=== PATIENT | male | born 1945 | race Caucasian/White ===

== ENCOUNTER 2022-02-09 09:00 | Emergency (ER) | payer OTHER ==
[2022-02-09] MEDS ORDERED: NA CHLORIDE 0.9% 1,000 ML ONE (09:38)
[2022-02-09] MEDS ORDERED: FENTANYL CITR 100 MCG/2 ML ONE ×2 (09:38→14:29)
[2022-02-09] MEDS ORDERED: ONDANSETRON 4 MG/2 ML VIAL ONE (09:38)
[2022-02-09] MEDS ORDERED: TETANUS & DIPHTHERIA TOX,ADULT 0.5 ML VIAL ONE (09:38)
[2022-02-09 09:54] LABS: Hematocrit 45.9 % (39.6-49.0); Lymphocytes % 24.1 % (15.3-44.8); MPV 7.3 fL (7.6-11.3); RBC Red Blood Cell Count 5.16 M/uL (4.33-5.43)
[2022-02-09 09:55] LABS: Protime INR 0.97
[2022-02-09 10:09] LABS: Albumin 4.4 g/dL (3.4-5.0); Bilirubin Total 0.6 mg/dL (0.2-1.0); Potassium 3.9 mmol/L (3.5-5.1); Protein, Total 8.5 g/dL (6.4-8.2)
--- NOTE | 2022-02-09 11:12 | RAD REPORT ---
EXAM DESCRIPTION: RAD - Hand Left 3 View - 02/09/2022 11:04 am CLINICAL HISTORY: ANIMAL BITE COMPARISON: No comparisons FINDINGS: Soft tissue swelling is seen affecting the fourth finger. No fracture or radiopaque foreig n body is seen.
[2022-02-09 14:57] LABS: Absolute Lymphocytes (CBC) 0.6 K/uL (0.7-4.9); MPV 7.2 fL (7.6-11.3)
[2022-02-09 15:01] LABS: Protime INR 1.04
[2022-02-09 15:09] LABS: Albumin 3.8 g/dL (3.4-5.0); Bilirubin Total 0.3 mg/dL (0.2-1.0); Potassium 4.1 mmol/L (3.5-5.1)
[2022-02-09 15:10] LABS: Hematocrit 41.2 % (39.6-49.0); RBC Red Blood Cell Count 4.57 M/uL (4.33-5.43)
--- NOTE | 2022-02-09 16:27 | ER ---
Nurse's Notes [facility] Name: Ramiro Andrade Age: 76 yrs Sex: Male : 1945 Arrival Date: 02/09/2022 Time: 09:01 Bed 8 Private MD: Diagnosis: Toxic effect of snake venom-bitten by snake left hand Presentation: 02/09 09:07 Chief complaint: Patient states: he was working on his car, when he was bitten on his ap3 left ring finger by a copper head at approx 0830 this morning. Coronavirus screen: At this time, the client does not indicate any symptoms associated with coronavirus-19. Ebola Screen: No symptoms or risks identified at this time. Initial Sepsis Screen: Does the patient meet any 2 criteria? No. Patient's initial sepsis screen is negative. Does the patient have a suspected source of infection? No. Patient's initial sepsis screen is negative. Risk Assessment: Do you want to hurt yourself or someone else? Patient reports no desire to harm self or others. Onset of symptoms was February 09, 2022 at 08:30. 09:07 Method Of Arrival: Ambulatory ap3 09:07 Acuity: SULEMAN 2 ap3 Triage Assessment: 09:08 Bite description: bite sustained to dorsal aspect of middle phalanx of left ring finger ap3 is from animal, was sustained 30-60 minutes ago. by a snake, animal information: vaccination(s) is not applicable. General: Appears distressed, Behavior is calm. Pain: Complains of pain in dorsal aspect of middle phalanx of left ring finger Pain currently is 10 out of 10 on a pain scale. Pain began suddenly, 30 min ago. Neuro: Level of Consciousness is awake, alert, obeys commands, Oriented to person, place, time, situation. Cardiovascular: Patient's skin is warm and dry. Respiratory: Airway is patent Respiratory effort is even, unlabored. Historical: - Allergies: 09:10 No Known Allergies; ap3 - PMHx: 09:10 Chronic obstructive lung disease; Hypertensive disorder; ap3 - Immunization history:: Adult Immunizations unknown. - Social history:: Smoking status: unknown. Screenin:10 Abuse screen: Denies threats or abuse. Nutritional screening: No deficits noted. ap3 Tuberculosis screening: No symptoms or risk factors identified. 09:58 Fall Risk None identified. ph Assessment: 09:10 Reassessment: Spoke with poison control who states to elevate affected extremity as ss high as the shoulder and or head. Obtain urine specimen and if it is dark, to obtain CK and myoglobin levels. Obtain CBC, CMP and coags. Give opioids for pain control. Update Tetanus. Minimum of 6 hours observation if patient's symptoms do not progress. Poison control rep states that she will speak with retail loan originator regarding [employer] administration and call back KINA. 09:20 Reassessment: area of bruising/ swelling noted to L fourth finger marked at this time. ss Extremity elevated to level of head as recommended by poison control. 09:36 Reassessment: PER [facility] AT [facility]ISON CONTROL: FLUID TO KEEP SBP >90, CROFAB ONLY INDICATED bp FOR COAGULOPATHY OR POOR PERFUSION. CASE [id number]. 09:57 Reassessment: Patient appears in no apparent distress at this time. Patient and/or ph family updated on plan of care and expected duration. Pain level reassessed. Patient is alert, oriented x 3, equal unlabored respirations, skin warm/dry/pink. Pain: Complains of pain in dorsal aspect of middle phalanx of left ring finger. Neuro: Level of Consciousness is awake, alert, obeys commands, Oriented to person, place, time, situation, Reports dizziness. Cardiovascular: Capillary refill < 3 seconds in bilateral fingers Patient's skin is warm and dry. Respiratory: Airway is patent Respiratory effort is even, unlabored, Respiratory pattern is regular, symmetrical, Denies shortness of breath at rest. GI: Reports nausea. Derm: Skin is healthy with good turgor, Skin is pink, warm \T\ dry. Bruising that is dark purple, on dorsal aspect of middle phalanx of left ring finger. Musculoskeletal: Circulation, motion, and sensation intact. Range of motion: intact in all extremities, Swelling present in dorsal aspect of middle phalanx of left ring finger. 10:03 Reassessment: Contact info, Dom (son): [phone]. ph 11:45 Reassessment: Patient appears in no apparent distress at this time. Patient and/or ph family updated on plan of care and expected duration. Pain level reassessed. Patient is alert, oriented x 3, equal unlabored respirations, skin warm/dry/pink. Swelling noted to proximal knuckle of finger, slight bruising also noted but no redness, pt c/o pain to area, ERP notified see AMBER SOLOM[facility]. 14:09 Reassessment: Patient appears in no apparent distress at this time. Patient and/or ph family updated on plan of care and expected duration. Pain level reassessed. Patient is alert, oriented x 3, equal unlabored respirations, skin warm/dry/pink. Swelling noted to have progressed across knuckles, pt denies nausea at this time but reports that pain has increased. 15:14 Reassessment: Patient appears in no apparent distress at this time. Patient and/or ph family updated on plan of care and expected duration. Pain level reassessed. Patient is alert, oriented x 3, equal unlabored respirations, skin warm/dry/pink. 16:19 Reassessment: F/U WITH [facility] AT [place] [facility]ISON CONTR[facility]. NO FURTHER RECOMMENDATIONS AT bp THIS TIME, LABS AND VS REVIEWED. 17:03 Reassessment: PT D/C HOME AMBULATORY WITH FAMILY, DX WITH SNAKE BITE. bp Vital Signs: 09:07 Pulse 82; Resp 19; Pulse Ox 92% ; Weight 87.09 kg; Height 5 ft. 9 in. (175.26 cm); ap3 09:13 BP 90 / 58; ap3 09:55 BP 85 / 53; Pulse 77; Resp 18; Pulse Ox 91% on 2 lpm NC; ph 11:21 BP 88 / 67; Pulse 61; Resp 16; Pulse Ox 100% on 2 lpm NC; ph 11:52 BP 127 / 53; Pulse 64; Resp 18; Pulse Ox 91% on R/A; ph 12:37 BP 115 / 64; Pulse 66; Resp 18; Pulse Ox 95% on R/A; ph 13:30 BP 139 / 83; Pulse 65; Resp 13; Pulse Ox 96% ; bp 14:30 BP 141 / 75; Pulse 65; Resp 17; Pulse Ox 96% ; bp 15:30 BP 138 / 66; Pulse 63; Resp 12; Pulse Ox 95% ; bp 16:30 BP 138 / 63; Pulse 65; Resp 13; Pulse Ox 97% ; bp 09:07 Body Mass Index 28.35 (87.09 kg, 175.26 cm) ap3 ED Course: 09:01 Patient arrived in ED. rg4 09:02 [facility] pm1 09:02 Brendon Ivan MD is Attending Physician. pm1 09:08 Triage completed. ap3 09:09 Darren Harp, LUKAS is Primary Nurse. bp 09:10 Arm band placed on right wrist. ap3 09:10 Patient has correct armband on for positive identification. Bed in low position. Call ss light in reach. Side rails up X 1. Client placed on continuous cardiac and pulse oximetry monitoring. NIBP monitoring applied. 09:35 Inserted saline lock: 20 gauge in right forearm, using aseptic technique. ,using ss aseptic technique. Insertion by BERNICE sales technician. Patient maintains SpO2 saturation greater than 95% on room air. 09:39 Inserted saline lock: 22 gauge in right antecubital area, using aseptic technique. ss ,using aseptic technique. Insertion by BERNICE sales technician Blood collected. 11:06 Hand Left 3 View XRAY In Process Unspecified. EDMS 16:23 Agustin Griffin MD is Referral Physician. pm1 17:03 No provider procedures requiring assistance completed. IV discontinued, intact, bp bleeding controlled, No redness/swelling at site. Pressure dressing applied. 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 Exp: ph 11/07/2023. Lot #: [id number]. } Route: IM; Site: right deltoid; 11:52 Follow up: Response: No adverse reaction ph 11:51 Drug: fentaNYL (PF) 50 mcg Route: IVP; Site: right forearm; ph 12:10 Follow up: Response: No adverse reaction; Pain is decreased; RASS: Alert and Calm (0) ph 15:14 Drug: fentaNYL (PF) 50 mcg Route: IVP; Site: right forearm; ph 17:02 Follow up: Response: Pain is decreased bp 16:30 Drug: Unasyn (ampicillin-sulbactam) 1.5 grams Route: IVPB; Infused Over: 30 mins; Site: bp right forearm; 17:03 Follow up: IV Status: Completed infusion; IV Intake: 100ml bp Medication: 17:03 VIS not applicable for this client. bp Intake: 11:52 IV: 1000ml; Total: 1000ml. ph 17:03 IV: 100ml; Total: 1100ml. bp Outcome: 16:26 Discharge ordered by MD. pm1 17:03 Discharged to home ambulatory, with family. bp 17:03 Condition: stable 17:03 Discharge instructions given to patient, Instructed on discharge instructions, follow up and referral plans. medication usage, Demonstrated understanding of instructions, follow-up care, medications, Prescriptions given X 2. 17:08 Patient left the ED. bp Signatures: Dispatcher [employer] EDMS Maki Simon RN RN Ashley Mendoza RN RN Luis Jensen, RADHA FARM SERVICE CONSULTANT pm1 Leisa Flores rg4 Darren Harp RN RN bp Samantha Pina RN RN ap3 Corrections: (The following items were deleted from the chart) 09:06 09:06 Chief complaint: ss ss 09:10 09:10 PMHx: Hypothyroidism; ap3 ap3 09:37 09:36 Reassessment: [facility] AT [facility]: FLUID TO KEEP SBP >90, CROFAB ONLY bp INDICATED FOR COAGULOPATHY OR POOR PERFUSION bp
--- NOTE | 2022-02-09 16:27 | EDPHYS ---
Physician Documentation [facility] Name: Ramiro Andrade Age: 76 yrs Sex: Male : 1945 Arrival Date: 02/09/2022 Time: 09:01 Bed 8 Private MD: ED Physician Brendon Ivan HPI: 02/09 09:11 This 76 yrs old Male presents to ER via Ambulatory with complaints of Snake bite. pm1 09:11 The patient was bitten on the middle phalanx of left ring finger, by a snake, 2 foot pm1 long copperhead, outdoors. 09:11 Onset: The symptoms/episode began/occurred 1.5 hour(s) ago. Animal information: The pm1 snake had the markings of a copperhead snake. Secondary to the bite the patient reports multiple puncture wounds, two puncture wounds present to middle phalanx of left ring finger. Associated signs and symptoms: Pertinent positives: swelling at site, Pertinent negatives: motor deficit, numbness distal to wound. Severity of symptoms: in the emergency department the symptoms are unchanged. The patient has not experienced similar symptoms in the past. The patient has not recently seen a physician. Historical: - Allergies: 09:10 No Known Allergies; ap3 - PMHx: 09:10 Chronic obstructive lung disease; Hypertensive disorder; ap3 - Immunization history:: Adult Immunizations unknown. - Social history:: Smoking status: unknown. ROS: 09:11 Constitutional: Negative for fever, chills, and weight loss, Cardiovascular: Negative pm1 for chest pain, palpitations, and edema, Respiratory: Negative for shortness of breath, cough, wheezing, and pleuritic chest pain. 09:11 Back: Negative for injury and pain. 09:11 Neuro: Negative for headache, weakness, numbness, tingling, and seizure. 09:11 Abdomen/GI: Positive for nausea, Negative for abdominal pain, vomiting, diarrhea, constipation. 09:11 MS/extremity: Positive for pain, puncture, swelling, of the middle phalanx of left ring finger, Negative for decreased range of motion, deformity, paresthesias, tingling. 09:11 Skin: Positive for puncture, of the middle phalanx of left ring finger. 09:11 All other systems are negative. Exam: 09:11 Constitutional: This is a well developed, well nourished patient who is awake, alert, pm1 and in no acute distress. Head/Face: Normocephalic, atraumatic. 09:11 Eyes: Exam is negative for acute changes, Periorbital structures: appear normal, no acute changes, Pupils: no acute changes, Extraocular movements: no acute changes. 09:11 ENT: Exam is negative for acute changes, Mouth: is normal, no acute changes, Lips: normal, moist, Oral mucosa: normal, pink and intact, moist. 09:11 Cardiovascular: Exam negative for acute changes, Rate: normal, Rhythm: regular, Pulses: no pulse deficits are appreciated, Heart sounds: normal. 09:11 Respiratory: Exam negative for acute changes, respiratory distress, shortness of breath, Breath sounds: are clear throughout. 09:11 Abdomen/GI: Exam negative for acute changes, Inspection: abdomen appears normal, Palpation: abdomen is soft and non-tender, in all quadrants. 09:11 Musculoskeletal/extremity: Extremities: grossly normal except: noted in the palmar aspect of middle phalanx of left ring finger and dorsal aspect of middle phalanx of left ring finger: swelling, puncture wound present to dorsal aspect of left middle phalanx and palmar aspect of left middle phalanx. small amount of ecchymosis present to palmar aspect of left middle phalanx, capillary refill brisk on all fingers of left hand. the left hand Sensation intact. 09:11 Skin: Appearance: normal except for affected area, puncture wounds and bruising as noted on MS exam. 09:11 Neuro: Exam negative for acute changes, Orientation: is normal, Mentation: is normal, Motor: moves all fours, Gait: is steady, at a normal pace, without difficulty. Vital Signs: 09:07 Pulse 82; Resp 19; Pulse Ox 92% ; Weight 87.09 kg; Height 5 ft. 9 in. (175.26 cm); ap3 09:13 BP 90 / 58; ap3 09:55 BP 85 / 53; Pulse 77; Resp 18; Pulse Ox 91% on 2 lpm NC; ph 11:21 BP 88 / 67; Pulse 61; Resp 16; Pulse Ox 100% on 2 lpm NC; ph 11:52 BP 127 / 53; Pulse 64; Resp 18; Pulse Ox 91% on R/A; ph 12:37 BP 115 / 64; Pulse 66; Resp 18; Pulse Ox 95% on R/A; ph 13:30 BP 139 / 83; Pulse 65; Resp 13; Pulse Ox 96% ; bp 14:30 BP 141 / 75; Pulse 65; Resp 17; Pulse Ox 96% ; bp 15:30 BP 138 / 66; Pulse 63; Resp 12; Pulse Ox 95% ; bp 16:30 BP 138 / 63; Pulse 65; Resp 13; Pulse Ox 97% ; bp 09:07 Body Mass Index 28.35 (87.09 kg, 175.26 cm) ap3 MDM: 09:27 Patient medically screened. pm1 16:22 Data reviewed: vital signs. Data interpreted: Pulse oximetry: on room air is 95 %. pm1 Interpretation: normal. 16:22 Counseling: I had a detailed discussion with the patient and/or guardian regarding: the pm1 historical points, exam findings, and any diagnostic results supporting the discharge/admit diagnosis, lab results, radiology results, the need for outpatient follow up, a family practitioner, a hand specialist, to return to the emergency department if symptoms worsen or persist or if there are any questions or concerns that arise at home. 16:31 ED course: No further recommendations from poison control. Crofab not indicated by pm1 poison control guidelines. Will give patient antibiotic therapy and discussed follow up with hand surgery and return to ER for worsening of condition and any concerns. 02/09 09:10 Order name: CBC with Diff; Complete Time: 10:06 pm02/09 09:10 Order name: CMP; Complete Time: 10:14 pm02/09 09:10 Order name: PT-INR; Complete Time: 10: pm02/09 09:10 Order name: Ptt, Activated; Complete Time: 10: pm02/09 09:10 Order name: CPK; Complete Time: 10:14 pm02/09 09:10 Order name: Fibrinogen; Complete Time: 10:06 pm02/09 09:10 Order name: Hand Left 3 View XRAY; Complete Time: 11:15 pm02/09 09:25 Order name: COVID-19 SARS RT PCR (Document "Date of Onset" if Symptomatic); Complete ss Time: 10:52 02/09 13:59 Order name: CBC with Diff; Complete Time: 15:31 pm02/09 13:59 Order name: CMP; Complete Time: 15:31 pm1 02/09 13:59 Order name: PT-INR; Complete Time: 15:31 pm1 02/09 13:59 Order name: Ptt, Activated; Complete Time: 15:31 pm1 02/09 13:59 Order name: CPK; Complete Time: 15:31 pm1 02/09 13:59 Order name: Fibrinogen; Complete Time: 15:31 pm1 02/09 09:16 Order name: IV - Large Bore; Complete Time: 09:38 ss Administered Medications: 09:40 Drug: Zofran (Ondansetron) 4 mg Route: IVP; Site: right forearm; ph 10:00 Follow up: Response: No adverse reaction; Nausea is decreased ph 09:40 Drug: NS 0.9% 1000 ml Route: IV; Rate: 1000 ml; Site: right forearm; ph 11:52 Follow up: Response: No adverse reaction; IV Status: Completed infusion; IV Intake: ph 1000ml 09:42 Drug: fentaNYL (PF) 50 mcg Route: IVP; Site: right forearm; ph 10:00 Follow up: Response: No adverse reaction; Pain is decreased; RASS: Alert and Calm (0) ph 09:45 Drug: Tetanus-Diphtheria Toxoid Adult 0.5 ml {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 Exp: ph 11/07/2023. Lot #: [id number]. } Route: IM; Site: right deltoid; 11:52 Follow up: Response: No adverse reaction ph 11:51 Drug: fentaNYL (PF) 50 mcg Route: IVP; Site: right forearm; ph 12:10 Follow up: Response: No adverse reaction; Pain is decreased; RASS: Alert and Calm (0) ph 15:14 Drug: fentaNYL (PF) 50 mcg Route: IVP; Site: right forearm; ph 17:02 Follow up: Response: Pain is decreased bp 16:30 Drug: Unasyn (ampicillin-sulbactam) 1.5 grams Route: IVPB; Infused Over: 30 mins; Site: bp right forearm; 17:03 Follow up: IV Status: Completed infusion; IV Intake: 100ml bp Disposition: 18:58 Co-signature as Attending Physician, Brendon Ivan MD. rn Disposition Summary: 02/09/22 16:26 Discharge Ordered Location: Home pm1 Problem: new pm1 Symptoms: have improved pm1 Condition: Stable pm1 Diagnosis - Toxic effect of snake venom - bitten by snake left hand(02/09/22 16:28) pm1 Followup: pm1 - With: Emergency Department - When: As needed - Reason: Worsening of condition Followup: pm1 - With: Agustin Griffin MD - When: 2 - 3 days - Reason: Recheck today's complaints, Continuance of care, Re-evaluation by your physician Discharge Instructions: - Discharge Summary Sheet pm1 - Snake Bite pm1 Forms: - Medication Reconciliation Form pm1 - Thank You Letter pm1 - Antibiotic Education pm1 - Prescription Opioid Use pm1 Prescriptions: - Tylenol-Codeine #3 300 mg-30 mg Oral - take 2 tablet by ORAL route every 6 hours As needed; 20 tablet; Refills: 0, pm1 Product Selection Permitted - Cephalexin 500 mg Oral Capsule - take 1 capsule by ORAL route every 6 hours for 10 days; 40 capsule; Refills: 0, pm1 Product Selection Permitted Signatures: Dispatcher [employer] EDMS Brendon Ivna MD MD rn Smirch, Shelby, RN RN ss Ashley Mendoza RN RN ph Luis Jensen, RADHA RADIO REPAIRER pm1 Darren Harp RN Samantha Whitehead RN RN ap3 Corrections: (The following items were deleted from the chart) 09:10 09:10 PMHx: Hypothyroidism; ap3 ap3 16:28 16:26 Toxic effect of snake venom - bitten by snake right hand pm1 pm1 17:30 09:11 The patient was bitten on the dorsal aspect of middle phalanx of left ring pm1 finger, by a snake, 2 foot long copperhead, outdoors, pm1
[2022-02-09] MEDS ORDERED: AMPICILLIN/SULBACTAM 3GM/VIAL ONE (17:04)
[2022-02-09] MEDS ORDERED: NA CHLORIDE 0.9% 100 ML ONE ×2 (17:04→17:10)
[2022-02-09] MEDS ORDERED: AMPICILLIN/SULBACT 1.5GM VIAL ONE (17:10)
[2022-02-09 17:24] VITALS: BP 138/63; O2SAT 97
== END 2022-02-09 17:08 | disposition home or self-care (01) ==
LOC: ER 09:00
DX: T63.091A Toxic effect of venom of other snake, accidental (unintentional), initial encounter (principal); S61.432A Puncture wound without foreign body of left hand, initial encounter; Z23 Encounter for immunization; I10 Essential (primary) hypertension; Z20.822 Contact with and (suspected) exposure to COVID-19
CPT/HCPCS: 85025 ×2; 36415; 85384 ×2; 82550 ×2; 85610 ×2; 85730 ×2; 80053 ×2; 73130; 90714; U0003; J3010 ×2; J7030; J0295 ×2; J2405; 90471; 96361; 96365; 96375; 99284

== ENCOUNTER 2023-04-05 09:16 | Emergency (ER) | payer OTHER ==
--- OUTSIDE RECORDS SUMMARY | 2023-04-05 09:20 | XMS REPORT | Continuity of Care Document ---
:1945 Author Organization [facility] t Address [address] [place] [address] Care Team Providers Name Role [facility] Primary Care Physician Unavailable TAM CAREY Attending Clinician Unavailable TAM CAREY Attending Clinician Unavailable 1, [facility] Attending Clinician Unavailable Tam Carey MD Attending Clinician Doctor Unassigned, [place] Attending Clinician Unavailable Raju_P Attending Clinician Unavailable Raju_P Admitting Clinician Unavailable Payers Payer Name Policy Type Policy Number Effective Date Expiration Date [facility] [id number] 2011 00:00:00 Problems Condition Condition Condition Status Onset Resolution Last Treating Co mments Source Name Details Category Date Date Treatment Clinician Date No known No known Disease Unive rs active active ity of problems problems [facility] Allergies, Adverse Reactions, Alerts Allergy Allergy Status Severity Reaction(s) Onset Inactive Treating Comm ents Source Name Type Date Date Clinician NO KNOWN Drug Active Univers ALLERGIE Class ity of S [facility] Social History Social Habit Start Date Stop Date Quantity Comments Source History of Cigarette Smoker Universi ty of tobacco use [facility] Exposure to 2022-06-06 2022-06-16 Not sure University of SARS-CoV-2 00:00:00 13:37:00 [facility] (event) [place] Tobacco use and 2022-06-16 2022-06-16 Smokeless tobacco Un iversity of exposure 00:00:00 00:00:00 non-user [facility] Sex Ass[birth year] Universit y of 00:00:00 00:00:00 [facility] Smoking Status Start Date Stop Date Source Ex-smoker 2022-06-16 00:00:00 2022-06-16 00:00:00 [facility] Medications Ordered Filled Start Stop Current Ordering Indication Dosage Frequency Signature Comments Components Source Medication Medication Date Date Medication? Clinician (SIG) Name Name ketorolac 2021-08 Yes INSTILL 1 Uni vers 0.5 % 0-05 DROP IN ity of ophthalmic 00:00: LEFT EYE [place] as solution 00 FOUR TIMES Medic al A DAY FOR Branch INFLAMMATI ON FOR EYE KITS....DO NOT MAIL moxifloxaci 2021-08 Yes INSTILL 1 U nivers n 0.5 % 0-05 DROP IN ity of ophthalmic 00:00: LEFT EYE [place] as drops 00 FOUR TIMES Medical A DAY IN Branch THE OPERATIVE EYE *FOR EYE KIT...DO NOT MAIL prednisoLON 2021-08 Yes INSTILL 1 U nivers E acetate 1 0-05 DROP IN ity o f % 00:00: LEFT EYE [place] [facility] 00 FOUR TIMES Med ical suspension A DAY FOR Bran ch drops EYE INFLAMMATI ON FOR EYE KITS....DO NOT MAIL ketorolac 2021-08 Yes INSTILL 1 Uni vers 0.5 % 0-05 DROP IN ity of ophthalmic 00:00: LEFT EYE [place] as solution 00 FOUR TIMES Medic al A DAY FOR Branch INFLAMMATI ON FOR EYE KITS....DO NOT MAIL moxifloxaci 2021-08 Yes INSTILL 1 U nivers n 0.5 % 0-05 DROP IN ity of ophthalmic 00:00: LEFT EYE [place] as drops 00 FOUR TIMES Medical A DAY IN Branch THE OPERATIVE EYE *FOR EYE KIT...DO NOT MAIL prednisoLON 2021-08 Yes INSTILL 1 U nivers E acetate 1 0-05 DROP IN ity o f % 00:00: LEFT EYE [place] [facility] 00 FOUR TIMES Med ical suspension A DAY FOR Bran ch drops EYE INFLAMMATI ON FOR EYE KITS....DO NOT MAIL ketorolac 2021-08 Yes INSTILL 1 Uni vers 0.5 % 0-05 DROP IN ity of ophthalmic 00:00: LEFT EYE [place] as solution 00 FOUR TIMES Medic al A DAY FOR Branch INFLAMMATI ON FOR EYE KITS....DO NOT MAIL moxifloxaci 2021-08 Yes INSTILL 1 U nivers n 0.5 % 0-05 DROP IN ity of ophthalmic 00:00: LEFT EYE [place] as drops 00 FOUR TIMES Medical A DAY IN Branch THE OPERATIVE EYE *FOR EYE KIT...DO NOT MAIL prednisoLON 2021-08 Yes INSTILL 1 U nivers E acetate 1 0-05 DROP IN ity o f % 00:00: LEFT EYE [place] [facility] 00 FOUR TIMES Med ical suspension A DAY FOR Bran ch drops EYE INFLAMMATI ON FOR EYE KITS....DO NOT MAIL ketorolac 2021-08 Yes INSTILL 1 Uni vers 0.5 % 0-05 DROP IN ity of ophthalmic 00:00: LEFT EYE [place] as solution 00 FOUR TIMES Medic al A DAY FOR Branch INFLAMMATI ON FOR EYE KITS....DO NOT MAIL moxifloxaci 2021-08 Yes INSTILL 1 U nivers n 0.5 % 0-05 DROP IN ity of ophthalmic 00:00: LEFT EYE [place] as drops 00 FOUR TIMES Medical A DAY IN Branch THE OPERATIVE EYE *FOR EYE KIT...DO NOT MAIL prednisoLON 2021-08 Yes INSTILL 1 U nivers E acetate 1 0-05 DROP IN ity o f % 00:00: LEFT EYE [place] [facility] 00 FOUR TIMES Med ical suspension A DAY FOR Bran ch drops EYE INFLAMMATI ON FOR EYE KITS....DO NOT MAIL metoprolol Yes [facility]18 ity of mg tablet 00:00: [address] metoprolol Yes 25mg 25 mg. [facility] tart[facility] 50 7-18 ity of mg tablet 00:00: [place] [facility] Er metoprolol Yes 25mg 25 mg. [facility] tart[facility] 50 7-18 ity of mg tablet 00:00: [address] metoprolol Yes 25mg 25 mg. [facility] tart[facility] 50 7-18 ity of mg tablet 00:00: [address] albuterol Yes 2{puff} Inhale 2 U nivers 90 6-16 Puffs ity of mcg/actuati 00:00: every 6 [place] as on inhaler 00 (six) Medical hours as Branch needed. finasteride 2-0 Yes 5mg 5 mg. Unive rs 5 mg tablet 6-16 ity of 00:00: [place] [facility] Branch lisinopriL 2-0 Yes 20mg 20 mg. Unive rs 20 mg 6-16 ity of tablet 00:00: [address] Branch SERTraline 2-0 Yes 100mg 100 mg. Uni vers 100 mg 6-16 ity of tablet 00:00: [address] Branch simvastatin 2022-0 Yes 20mg 20 mg. Univ ers 20 mg 6-16 ity of tablet 00:00: [address] Branch tamsulosin 2-0 Yes .4mg 0.4 mg. Univ ers 0.4 mg 24 6-16 ity of hr capsule 00:00: [address] Branch albuterol 2-0 Yes 2{puff} Inhale 2 U nivers 90 6-16 Puffs ity of mcg/actuati 00:00: every 6 [place] as on inhaler 00 (six) Medical hours as Branch needed. finasteride 2-0 Yes 5mg 5 mg. Unive rs 5 mg tablet 6-16 ity of 00:00: [address] Branch lisinopriL 2-0 Yes 20mg 20 mg. Unive rs 20 mg 6-16 ity of tablet 00:00: [address] Branch SERTraline 2-0 Yes 100mg 100 mg. Uni vers 100 mg 6-16 ity of tablet 00:00: [address] Branch simvastatin 2022-0 Yes 20mg 20 mg. Univ ers 20 mg 6-16 ity of tablet 00:00: [address] Branch tamsulosin 2-0 Yes .4mg 0.4 mg. Univ ers 0.4 mg 24 6-16 ity of hr capsule 00:00: [address] Branch albuterol 2-0 Yes 2{puff} Inhale 2 U nivers 90 6-16 Puffs ity of mcg/actuati 00:00: every 6 [place] as on inhaler 00 (six) Medical hours as Branch needed. finasteride 2-0 Yes 5mg 5 mg. Unive rs 5 mg tablet 6-16 ity of 00:00: [address] Branch lisinopriL 2022-0 Yes 20mg 20 mg. Unive rs 20 mg 6-16 ity of tablet 00:00: [address] Branch SERTraline 0 Yes 100mg 100 mg. Uni vers 100 mg 6-16 ity of tablet 00:00: [address] simvastatin 2021-0 Yes 20mg 20 mg. Univ ers 20 mg 6-16 ity of tablet 00:00: [address] Branch tamsulosin 0 Yes .4mg 0.4 mg. Univ ers 0.4 mg 24 6-16 ity of hr capsule 00:00: [address] albuterol 0 Yes 2{puff} Inhale 2 U nivers 90 6-16 Puffs ity of mcg/actuati 00:00: every 6 [place] as on inhaler 00 (six) Medical hours as Branch needed. finasteride Yes 5mg 5 mg. Unive rs 5 mg tablet 6-16 ity of 00:00: [address] lisinopriL 0 Yes 20mg 20 mg. Unive rs 20 mg 6-16 ity of tablet 00:00: [address] SERTraline 0 Yes 100mg 100 mg. Uni vers 100 mg 6-16 ity of tablet 00:00: [address] simvastatin 0 Yes 20mg 20 mg. Univ ers 20 mg 6-16 ity of tablet 00:00: [address] tamsulosin 0 Yes .4mg 0.4 mg. Univ ers 0.4 mg 24 6-16 ity of hr capsule 00:00: [address] Immunizations Ordered Filled Immunization Date Status Comments [facility] e Immunization Name Name SARS-COV-2 COVID-2022-05-28 Completed Unive rsity of MIGUELINA-SUCROSE 00:00:00 [place] [facility] VACCINE 12 YRS+, Branch BIVALENT 0.3ML, IM, (PFIZER LEVY TOP BOOSTER) SARS-COV-2 COVID-19 2022-05-28 Completed Unive rsity of MIGUELINA-SUCROSE 00:00:00 [place] [facility] VACCINE 12 YRS+, Branch BIVALENT 0.3ML, IM, (PFIZER LEVY TOP BOOSTER) SARS-COV-2 COVID-19 2022-05-28 Completed Unive rsity of MIGUELINA-SUCROSE 00:00:00 [place] [facility] VACCINE 12 YRS+, Branch BIVALENT 0.3ML, IM, (PFIZER LEVY TOP BOOSTER) SARS-COV-2 COVID-19 2022-05-28 Completed Unive rsity of MIGUELINA-SUCROSE 00:00:00 [place] [facility] VACCINE 12 YRS+, Branch BIVALENT 0.3ML, IM, (PFIZER LEVY TOP BOOSTER) Influenza Virus 2021-10-06 Completed Universit y of Vaccine,quad 00:00:00 [place] [facility] Im,preserve Free Branch 65+ Influenza Virus 2021-10-06 Completed Universit y of Vaccine,quad 00:00:00 [place] [facility] Im,preserve Free Branch 65+ Influenza Virus 2021-10-06 Completed Universit y of Vaccine,quad 00:00:00 [place] [facility] Im,preserve Free Branch 65+ Influenza Virus 2021-10-06 Completed Universit y of Vaccine,quad 00:00:00 [place] [facility] Im,preserve Free Branch 65+ SARS-COV-2 COVID-19 2020-12-13 Completed Unive rsity of PFIZER VACCINE 00:00:00 [facility] SARS-COV-2 COVID-19 2020-12-13 Completed Unive rsity of PFIZER VACCINE 00:00:00 [facility] [place] [facility] SARS-COV-2 COVID-19 2020-12-13 Completed Unive rsity of PFIZER VACCINE 00:00:00 [facility] [place] [facility] SARS-COV-2 COVID-19 2020-12-13 Completed Unive rsity of PFIZER VACCINE 00:00:00 [facility] [place] [facility] SARS-COV-2 COVID-19 2020-11-19 Completed Unive rsity of PFIZER VACCINE 00:00:00 [facility] [place] [facility] SARS-COV-2 COVID-19 2020-11-19 Completed Unive rsity of PFIZER VACCINE 00:00:00 [facility] [place] [facility] SARS-COV-2 COVID-19 2020-11-19 Completed Unive rsity of PFIZER VACCINE 00:00:00 [facility] [place] [facility] SARS-COV-2 COVID-19 2020-11-19 Completed Unive rsity of PFIZER VACCINE 00:00:00 [facility] [place] [facility] Pneumococcal 13 2017-10-25 Completed Universit y of Conjugate, PCV13 00:00:00 [facility] (Prevnar 13) [place] Pneumococcal 13 2017-10-25 Completed Universit y of Conjugate, PCV13 00:00:00 [facility] dical (Prevnar 13) Branch Pneumococcal 13 2017-10-25 Completed Universit y of Conjugate, PCV13 00:00:00 [facility] dical (Prevnar 13) Branch Pneumococcal 13 2017-10-25 Completed Universit y of Conjugate, PCV13 00:00:00 [facility] dical (Prevnar 13) Branch TDAP 2017-03-11 Completed University of 00:00:00 [facility] 2017-03-11 Completed [facility] University of 00:00:00 [facility] Zoster(Zostavax)( 2012-12-06 Completed Unive rsity of ingles) 00:00:00 [facility] Zoster(Zostavax)( 2012-12-06 Completed Unive rsity of ingles) 00:00:00 [facility] Zoster(Zostavax)( 2012-12-06 Completed Unive rsity of ingles) 00:00:00 [facility] Zoster(Zostavax)( 2012-12-06 Completed Unive rsity of ingles) 00:00:00 [facility] Vital Signs Vital Name Observation Time Observation Value Comments Source Systolic blood 2022-06-16 18:51:00 131 mm[Hg] Univer sity of pressure [facility] Diastolic blood 2022-06-16 18:51:00 62 mm[Hg] Unive rsity of pressure [facility] Heart rate 2022-06-16 18:51:00 59 /min [facility] Respiratory rate 2022-06-16 18:51:00 19 /min [facility] height 2022-06-16 18:51:00 172.7 cm [facility] Body weight 2022-06-16 18:51:00 85.957 kg [facility] BMI 2022-06-16 18:51:00 28.81 kg/m2 [facility] Oxygen saturation in 2022-06-16 18:51:00 92 /min [facility] blood by [facility] Pulse oximetry Branch Procedures Procedure Date / Time Performed Performing Clinician [facility] e SLEEP STUDY DATA 2022-07-01 05:01:00 Doctor Unassigned, No Unive [facility] REPORT Name [facility] Er Encounters Start End Encounter Admission Attending Care Care Encounter Source Date/Time Date/Time Type Type Clinicians Facility Department ID 2022-08-20 2022-08-20 Outpatient R TAM CAREY [facility] [id number] Univers 20:00:00 20:00:00 TAM CAREY [facility] 2022-07-01 2022-07-02 Outpatient R TAM CAREY [facility] [id number] Univers 20:00:00 07:22:23 TAM CAREY [facility] 2022-07-01 2022-07-01 Manager Branch 1, [facility] Sleep Lab Bed [facility] [id number] Univers 20:00:00 22:30:00 Visit Tam Carey [id number] [place] of [id number] [id number] [facility] 193 Branch 2022-07-01 2022-07-01 Orders Doctor ELIZABETH [id number] Univers 00:00:00 00:00:00 Only Unassigned, LUKE [id number] ity of [place] [facility] [id number] [place] as [id number] [facility] 009 Branch 2022-06-16 2022-06-16 Office Aurelio [facility] [id number] Univers 13:40:00 14:00:00 Visit Tam KRAFT [id number] [id number] [facility] [id number] Ar dical [facility] 085 [facility] 2022-06-16 2022-06-16 Outpatient R TAM CAREY [facility] [id number] Univers 13:40:00 13:40:00 TAM CAREY [facility] 2019-12-03 2019-12-03 Outpatient Raju_P MMG [id number] [place] 04:44:00 04:44:00 0406 Medical [facility] Results This patient has no known results.
[2023-04-05 10:11] LABS: Absolute Lymphocytes (CBC) 1.5 K/uL (0.7-4.9); Hematocrit 39.3 % (39.6-49.0); Lymphocytes % 24.3 % (15.3-44.8); MPV 7.1 fL (7.6-11.3); Platelets 233 thou/uL (152-406); RBC Red Blood Cell Count 4.31 M/uL (4.33-5.43)
[2023-04-05 10:13] LABS: Protime INR 1.02
[2023-04-05 10:33] LABS: Albumin 3.8 g/dL (3.4-5.0); Bilirubin Direct 0.1 mg/dL (0-0.2); Bilirubin Indirect, Calculated 0.4 mg/dL (0.2-0.8); Bilirubin Total 0.5 mg/dL (0.2-1.0); Potassium 3.9 mEq/L (3.5-5.1); Protein, Total 7.6 g/dL (6.4-8.2); Troponin High Sensitivity 4.9 pg/mL (<58.9)
--- NOTE | 2023-04-05 11:10 | RAD REPORT ---
EXAM DESCRIPTION: RAD - Chest Single View - 04/05/2023 11:04 am CLINICAL HISTORY: CHEST PAIN Chest pain. COMPARISON: No comparisons FINDINGS: Portable technique limits examination quality. The lungs are grossly clear. The heart is normal in size. No displaced fractures. IMPRESSION: No acute intrathoracic process suspected.
--- NOTE | 2023-04-05 12:44 | ER ---
Nurse's Notes [facility] Name: Ramiro Andrade Age: 77 yrs Sex: Male : 1945 Arrival Date: 04/05/2023 Time: 09:16 Bed 14 Private MD: Diagnosis: Chest pain, unspecified;COPD/ Chronic obstructive pulmonary disease, unspecified Presentation: 04/05 09:22 Chief complaint: Patient states[facility]. Pt states he has had nj1 chest pains and shortness of breath over the past month. Denies pain at this time. 09:22 Coronavirus screen: Vaccine status: Patient reports receiving the 2nd dose of the covid nj1 vaccine. Ebola Screen: Patient denies travel to an Ebola-affected area in the 21 days before illness onset. Initial Sepsis Screen: Does the patient meet any 2 criteria? No. Patient's initial sepsis screen is negative. Does the patient have a suspected source of infection? No. Patient's initial sepsis screen is negative. Risk Assessment: Do you want to hurt yourself or someone else? Patient reports no desire to harm self or others. Onset of symptoms was February 2023. 09:22 Method Of Arrival: Ambulatory [facility] 09:22 Acuity: SULEMAN 3 nj1 Historical: - Allergies: 09:22 No Known Allergies; nj1 - PMHx: 09:22 Chronic obstructive lung disease; Hypertensive disorder; Hypercholesterolemia; PTSD; nj1 - PSHx: 09:22 None; nj1 - Immunization history:: Client reports receiving the 2nd dose of the Covid vaccine. - Social history:: Smoking status: Patient denies any tobacco usage or history of. Screenin:36 [facility] ED Fall Risk Assessment (Adult) History of falling in the last 3 months, kc6 including since admission No falls in past 3 months (0 pts) Confusion or Disorientation No (0 pts) Intoxicated or Sedated No (0 pts) Impaired Gait No (0 pts) Mobility Assist Device Used No (0 pt) Altered Elimination No (0 pt) Score/Fall Risk Level 0 - 2 = Low Risk. Abuse screen: Denies threats or abuse. Denies injuries from another. Nutritional screening: No deficits noted. Tuberculosis screening: No symptoms or risk factors identified. Assessment: 09:36 General: Appears in no apparent distress. comfortable, Behavior is calm, cooperative, kc6 appropriate for age. Pain: Denies pain. Quality of pain is described as heavy, pressure. Neuro: Level of Consciousness is awake, alert, obeys commands, Oriented to person, place, time, situation, Appropriate for age. Cardiovascular: Denies chest pain, Heart tones S1 S2 present Capillary refill < 3 seconds Rhythm is sinus bradycardia. Respiratory: Reports shortness of breath on exertion Airway is patent Trachea midline Respiratory effort is even, unlabored, Respiratory pattern is regular, symmetrical. GI: No signs and/or symptoms were reported involving the gastrointestinal system. : No signs and/or symptoms were reported regarding the genitourinary system. EENT: No signs and/or symptoms were reported regarding the EENT system. Derm: No signs and/or symptoms reported regarding the dermatologic system. Skin is intact, is healthy with good turgor, Skin is pink, warm \T\ dry. Musculoskeletal: No signs and/or symptoms reported regarding the musculoskeletal system. Circulation, motion, and sensation intact. Capillary refill < 3 seconds, Range of motion: intact in all extremities. 10:35 Reassessment: Patient appears in no apparent distress at this time. No changes from kc6 previously documented assessment. Patient and/or family updated on plan of care and expected duration. Pain level reassessed. Patient is alert, oriented x 3, equal unlabored respirations, skin warm/dry/pink. 11:41 Reassessment: Patient appears in no apparent distress at this time. No changes from kc6 previously documented assessment. Patient and/or family updated on plan of care and expected duration. Pain level reassessed. Patient is alert, oriented x 3, equal unlabored respirations, skin warm/dry/pink. Vital Signs: 09:22 BP 177 / 79; Pulse 62; Resp 18; Temp 98(O); Pulse Ox 97% on R/A; Weight 88 kg; Height 5 nj1 ft. 9 in. ; 10:35 BP 175 / 76; Pulse 56; Resp 20 S; Pulse Ox 95% on R/A; kc6 11:42 BP 165 / 68; Pulse 52; Resp 17 S; Pulse Ox 92% on R/A; kc6 09:22 Body Mass Index 28.65 (88.00 kg, 175.26 cm) [facility] ED Course: 09:18 Patient arrived in ED. rg4 09:20 Libia Cotton FNP-C [facility]. snw 09:20 Brendon Ivan MD is Attending Physician. snw 09:22 Arm band placed on right wrist. nj1 09:33 Triage completed. nj1 09:36 Harriet Hansen, RN is Primary Nurse. kc6 09:36 Inserted saline lock: 20 gauge in left antecubital area, using aseptic technique. kc6 ,using [facility]septic technique. [facility] collected. 09:37 Patient has correct armband on for positive identification. Placed in gown. Bed in low kc6 position. Call light in reach. Side rails up X2. Client placed on continuous cardiac and pulse oximetry monitoring. NIBP monitoring applied. nurse monitoring on. 10:02 Lipase Sent. kc6 10:02 Basic Metabolic Panel Sent. kc6 10:02 CBC with Diff Sent. kc6 10:02 LFT's Sent. kc6 10:02 Magnesium Sent. kc6 10:02 NT PRO-BNP Sent. kc6 10:02 PT-INR Sent. kc6 10:02 Troponin HS Sent. kc6 11:06 XRAY Chest (1 view) In Process Unspecified. EDMS 12:16 Troponin HS: Draw at 1215 Sent. kc6 12:27 EKG done, by ED staff. 8 12:43 Gurwinder Medina MD is Referral Physician. snw 13:13 No provider procedures requiring assistance completed. IV discontinued, intact, kc6 bleeding controlled, No redness/swelling at site. Pressure dressing applied. Administered Medications: 12:43 Drug: Famotidine PO 20 mg Route: PO; kc6 Medication: 13:14 VIS not applicable for this client. kc6 Outcome: 12:43 Discharge ordered by . snw 13:13 Discharged to home ambulatory. kc6 13:13 Condition: improved 13:13 Discharge instructions given to patient, Instructed on discharge instructions, follow up and referral plans. Demonstrated understanding of instructions, follow-up care. 13:14 Patient left the ED. kc6 Signatures: Dispatcher [employer] EDDC Libia Cotton FNP-C CLINICAL DATA MANAGER-Csnw Leisa Flores rg4 Harriet Hansen, RN RN kc6 Barby Burr RN RN nj1 Reena Zabala 8
--- NOTE | 2023-04-05 12:44 | EDPHYS ---
Physician Documentation [facility] Name: Ramiro Andrade Age: 77 yrs Sex: Male : 1945 Arrival Date: 04/05/2023 Time: 09:16 Bed 14 Private MD: ED Physician Brendon Ivan HPI: 04/05 09:28 This 77 yrs old Male presents to ER via Unassigned with complaints of Abnormal EKG. snw 09:28 Onset: The symptoms/episode began/occurred 1 month(s) ago, and became persistent. snw Modifying factors: The patient symptoms are alleviated by nothing, the patient symptoms are aggravated by nothing. It is unknown whether or not the patient has had similar symptoms in the past. The patient has been recently seen by a physician: the patient's primary care provider, earlier today, with similar presenting complaints. pt went for a check up at the [place] this am and told them about intermittent episodes of "tingly", intermittent chest pain.. Historical: - Allergies: 09:22 No Known Allergies; nj1 - PMHx: 09:22 Chronic obstructive lung disease; Hypertensive disorder; Hypercholesterolemia; PTSD; nj1 - PSHx: 09:22 None; nj1 - Immunization history:: Client reports receiving the 2nd dose of the Covid vaccine. - Social history:: Smoking status: Patient denies any tobacco usage or history of. ROS: 09:28 Constitutional: Negative for fever, chills, and weight loss, Eyes: Negative for injury, snw pain, redness, and discharge, ENT: Negative for injury, pain, and discharge, Neck: Negative for injury, pain, and swelling, Respiratory: Negative for shortness of breath, cough, wheezing, and pleuritic chest pain, Abdomen/GI: Negative for abdominal pain, nausea, vomiting, diarrhea, and constipation, Back: Negative for injury and pain, : Negative for injury, bleeding, discharge, and swelling, MS/Extremity: Negative for injury and deformity, Skin: Negative for injury, rash, and discoloration, Neuro: Negative for headache, weakness, numbness, tingling, and seizure, Psych: Negative for depression, anxiety, suicide ideation, homicidal ideation, and hallucinations. 09:28 Cardiovascular: Positive for chest pain, of the anterior aspect of left upper chest, tingly and intermittent. Exam: 09:27 Constitutional: This is a well developed, well nourished patient who is awake, alert, snw and in no acute distress. + cigarette Head/Face: Normocephalic, atraumatic. Eyes: Pupils equal round and reactive to light, extra-ocular motions intact. Lids and lashes normal. Conjunctiva and sclera are non-icteric and not injected. Cornea within normal limits. Periorbital areas with no swelling, redness, or edema. ENT: Nares patent. No nasal discharge, no septal abnormalities noted. Tympanic membranes are normal and external auditory canals are clear. Oropharynx with no redness, swelling, or masses, exudates, or evidence of obstruction, uvula midline. Mucous membranes moist. Neck: Trachea midline, no thyromegaly or masses palpated, and no cervical lymphadenopathy. Supple, full range of motion without nuchal rigidity, or vertebral point tenderness. No Meningismus. Chest/axilla: Normal chest wall appearance and motion. Nontender with no deformity. No lesions are appreciated. Cardiovascular: Regular rate and rhythm with a normal S1 and S2. No gallops, murmurs, or rubs. Normal PMI, no JVD. No pulse deficits. Respiratory: Lungs have equal breath sounds bilaterally, clear to auscultation and percussion. No rales, rhonchi or wheezes noted. No increased work of breathing, no retractions or nasal flaring. Abdomen/GI: Soft, non-tender, with normal bowel sounds. No distension or tympany. No guarding or rebound. No evidence of tenderness throughout. Back: No spinal tenderness. No costovertebral tenderness. Full range of motion. Skin: Warm, dry with normal turgor. Normal color with no rashes, no lesions, and no evidence of cellulitis. MS/ Extremity: Pulses equal, no cyanosis. Neurovascular intact. Full, normal range of motion. Neuro: Awake and alert, GCS 15, oriented to person, place, time, and situation. Cranial nerves II-XII grossly intact. Motor strength 5/5 in all extremities. Sensory grossly intact. Cerebellar exam normal. Normal gait. Psych: Awake, alert, with orientation to person, place and time. Behavior, mood, and affect are within normal limits. Vital Signs: 09:22 BP 177 / 79; Pulse 62; Resp 18; Temp 98(O); Pulse Ox 97% on R/A; Weight 88 kg; Height 5 nj1 ft. 9 in. ; 10:35 BP 175 / 76; Pulse 56; Resp 20 S; Pulse Ox 95% on R/A; kc6 11:42 BP 165 / 68; Pulse 52; Resp 17 S; Pulse Ox 92% on R/A; kc6 09:22 Body Mass Index 28.65 (88.00 kg, 175.26 cm) nj1 MDM: 09:22 Patient medically screened. snw 10:59 Differential diagnosis: viral Infection, bacterial infection, stable/unstable angina. snw Data reviewed: vital signs, nurses notes, lab test result(s), EKG, radiologic studies. 11:00 HEART Score: History: Slightly Suspicious (0), ECG: Normal (0), Age: > or = 65 years snw (2), Risk Factors: 1 or 2 risk factors (1), Troponin: Total Score = 3. LIZZIE Risk Score: 1 - patient's age is greater or equal to 65 years, 1 - Recent [<24hrs] Severe Angina, TOTAL SCORE = 2. Counseling: I had a detailed discussion with the patient and/or guardian regarding: the historical points, exam findings, and any diagnostic results supporting the discharge/admit diagnosis, the presence of at least one elevated blood pressure reading (>120/80) during this emergency department visit, lab results, radiology results, the need for outpatient follow up. Special discussion: Based on the patient's history, exam, and Dx evaluation, there is no indication for emergent intervention or inpatient Tx. It is understood by the patient/guardian that if the Sx's persist or worsen they need to return immediately for re-evaluation. Based on the history and exam findings, there is no indication for further emergent testing or inpatient evaluation. I discussed with the patient/guardian the need to see the outboard motors experimental mechanic for further evaluation of the symptoms. I discussed with the patient/guardian the need to see the primary care provider for further evaluation of the symptoms. 04/05 09:58 Order name: Basic Metabolic Panel; Complete Time: 10:33 snw 04/05 09:58 Order name: CBC with Diff; Complete Time: 10:22 snw 04/05 09:58 Order name: LFT's; Complete Time: 10:33 snw 04/05 09:58 Order name: Magnesium; Complete Time: 10:33 snw 04/05 09:58 Order name: NT PRO-BNP; Complete Time: 10:33 snw 04/05 09:58 Order name: PT-INR; Complete Time: 10:22 snw 04/05 09:58 Order name: Troponin HS; Complete Time: 10:33 snw 04/05 09:58 Order name: Lipase; Complete Time: 10:33 snw 04/05 11:14 Order name: Troponin HS: Draw at 1215; Complete Time: 12:43 snw 04/05 09:58 Order name: XRAY Chest (1 view); Complete Time: 11:13 snw 04/05 09:58 Order name: EKG; Complete Time: 09:59 snw 04/05 11:14 Order name: EKG: at 1215; Complete Time: 11:14 snw 04/05 09:58 Order name: Cardiac monitoring; Complete Time: 10:02 snw 04/05 09:58 Order name: EKG - Nurse/Tech; Complete Time: 10:02 snw 04/05 09:58 Order name: IV Saline Lock; Complete Time: 10:02 snw 04/05 09:58 Order name: Labs collected and sent; Complete Time: 10:02 snw 04/05 09:58 Order name: O2 Per Protocol; Complete Time: 10:02 w 04/05 09:58 Order name: O2 Sat Monitoring; Complete Time: 10:02 snw 08 11:14 Order name: EKG - Nurse/Tech; Complete Time: 12:16 snw EC:29 Rate is 57 beats/min. Rhythm is regular. QRS [place] is Normal. NM interval is normal. QRS snw interval is normal. T waves are Inverted in lead V2. No ST changes noted. Clinical impression: Sinus bradycardia and nonspecific changes. 12:38 Rate is 50 beats/min. Rhythm is regular. QRS [place] is Normal. NM interval is normal. QRS snw interval is normal. QT interval is normal. No Q waves. Clinical impression: Sinus bradycardia. Administered Medications: 12:43 Drug: Famotidine PO 20 mg Route: PO; kc6 Disposition: 17:44 Co-signature as Attending Physician, Brendon Ivan MD I reviewed the patient's care rn provided by the Advanced Practice Provider and agree with the diagnosis and treatment plan. Disposition Summary: 04/05/23 12:43 Discharge Ordered Location: Home snw Condition: Stable snw Diagnosis - Chest pain, unspecified snw - COPD/ Chronic obstructive pulmonary disease, unspecified snw Followup: snw - With: Emergency Department - When: As needed - Reason: Worsening of condition Followup: snw - With: Private Physician - When: 2 - 3 days - Reason: Recheck today's complaints, Continuance of care, Re-evaluation by your physician Followup: snw - With: - When: 2 - 3 days - Reason: Recheck today's complaints, Continuance of care, Re-evaluation by your physician Discharge Instructions: - Discharge Summary Sheet snw - Nonspecific Chest Pain, Adult snw - Hypertension, Adult snw - How to Take Your Blood Pressure, Nukx-lw-[id number] snw - Aspirin and Your Heart snw - Form - Blood Pressure Record Sheet snw Forms: - Medication Reconciliation Form snw - Thank You Letter snw - Antibiotic Education snw - Prescription Opioid Use snw - Patient Portal Instructions snw Signatures: Dispatcher [employer] EDLibia Caldera, VICE PRESIDENT OF MANUFACTURING-C VICE PRESIDENT OF MANUFACTURING-Csnw Brendon Ivan MD MD rn Campbell, Kaitlyn RN RN kc6 Barby Burr RN RN nj1
[2023-04-05] MEDS ORDERED: FAMOTIDINE 20 MG TAB ONE (12:50)
[2023-04-05 13:30] VITALS: TEMP 98
[2023-04-05 13:33] VITALS: BP 165/68; O2SAT 92
--- NOTE | 2023-04-06 18:11 | EKG ---
Test Date: 2023-04-05 Test Time: 12:23:02 Lead Ios Developer: SORAIDA MEASUREMENT RESULTS: Intervals: Rate: 50 GA: 140 QRSD: 102 QT: 480 QTc: 437 [place]: P: 46 GA: 140 QRS: 62 T: 50 INTERPRETIVE STATEMENTS: Sinus bradycardia Otherwise normal ECG Compared to ECG 04/05/2023 09:29:03 No significant changes Electronically Signed On 04-06-23 18:09:54 CDT by Gurwinder Medina
--- NOTE | 2023-04-06 18:12 | EKG ---
Test Date: 2023-04-05 Test Time: 09:29:03 Gis Database Administrator: YAA MEASUREMENT RESULTS: Intervals: Rate: 57 LA: 142 QRSD: 96 QT: 432 QTc: 420 [place]: P: 68 LA: 142 QRS: 71 T: 44 INTERPRETIVE STATEMENTS: Sinus bradycardia Otherwise normal ECG No previous ECG available for comparison Electronically Signed On 04-06-23 18:10:41 CDT by Gurwinder Medina
== END 2023-04-05 13:14 | disposition home or self-care (01) ==
LOC: ER 09:16
DX: R07.89 Other chest pain (principal); J44.9 Chronic obstructive pulmonary disease, unspecified; I10 Essential (primary) hypertension
CPT/HCPCS: 36415; 71045; 80048; 80076; 83690; 83735; 83880; 84484; 85025; 85610; 93005; 99284

== ENCOUNTER → 2023-09-19 | Emergency (ER) | payer OTHER ==
[~2023-09-19] MED LIST: ALBUTEROL 2.5 MG/3 ML NEB SOL ONE; IPRATROPIUM BROM 0.5MG/2.5ML ONE; METHYLPREDNISOLONE 125 MG INJ ONE
--- OUTSIDE RECORDS SUMMARY | 2023-09-19 12:48 | XMS REPORT | Continuity of Care Document ---
Author Name Unknown Address [address] [place] [address] [facility] thconnect Address [address] [place] [address] Care Team Providers Care Personal Computer Specialist Name Role Phone [facility] Primary Car e Physician Unavailable TAM CAREY Attending Clinician TAM Lu Attending Clinician Mary guerra 1, [facility] Sleep Lab Bed Attending Clinician Unavail Tam Silveira MD Attending Clinician Doctor Unassigned, [place] Attending Clinician U navailable Raju_P Attending Clinician Unavailable Raju_P Admitting Clinician Unavailable Payers Payer Name Policy Type Policy Number Effective Date Expirati on Date Source [facility] [id number] 2011 00:00:00 Problems Condition Name Condition Details Condition Category Status Onset Date Resolution Date Last Treatment Date Treating Clinician Comments Source No known active problems No known active problems Disease [facility] Allergies, Adverse Reactions, Alerts Allergy Name Allergy Type Status Severity Reaction(s) Onset Date Inactive Date Treating Clinician Comments Source NO KNOWN ALLERGIE S Drug Class Active [facility] Social History Social Habit Start Date Stop Date Quantity Comments Source History of tobacco use Cigarette Smoker [facility] Exposure to SARS-CoV-2 (event) 2022-06-06 00:00:00 2022-06-16 13:37:00 Not sure [facility] Tobacco use and exposure 2022-06-16 00:00:00 2022-06-16 00:00:00 Smokeless tobacco non-user [facility] Sex Ass[birth year] At 1945 00:00:00 1945 00:00:00 [facility] Smoking Status Start Date Stop Date Source Ex-smoker 2022-06-16 00:00:00 2022-06-16 00:00:00 [facility] Medications Ordered Medication Name Filled Medication Name Start Date Stop Date Current Medication? Ordering Clinician Indication Dosage Frequency Signature (SIG) Comments Components Source ketorolac 0.5 % ophthalmic solution 2021-08 005 00:00: 00 Yes INSTILL 1 DROP IN LEFT EYE FOUR TIMES A DAY FOR INFLAMMATI ON FOR EYE KITS....DO NOT MAIL [facility] moxifloxaci n 0.5 % ophthalmic drops 2021-08 005 00:00: 00 Yes INSTILL 1 DROP IN LEFT EYE FOUR TIMES A DAY IN THE OPERATIVE EYE *FOR EYE KIT...DO NOT MAIL [facility] prednisoLON E acetate 1 % ophthalmic suspension drops 2021-08 005 00:00: 00 Yes INSTILL 1 DROP IN LEFT EYE FOUR TIMES A DAY FOR EYE INFLAMMATI ON FOR EYE KITS....DO NOT MAIL [facility] ketorolac 0.5 % ophthalmic solution 2021-08 005 00:00: 00 Yes INSTILL 1 DROP IN LEFT EYE FOUR TIMES A DAY FOR INFLAMMATI ON FOR EYE KITS....DO NOT MAIL [facility] moxifloxaci n 0.5 % ophthalmic drops 2021-08 005 00:00: 00 Yes INSTILL 1 DROP IN LEFT EYE FOUR TIMES A DAY IN THE OPERATIVE EYE *FOR EYE KIT...DO NOT MAIL [facility] prednisoLON E acetate 1 % ophthalmic suspension drops 2021-08 0-05 00:00: 00 Yes INSTILL 1 DROP IN LEFT EYE FOUR TIMES A DAY FOR EYE INFLAMMATI ON FOR EYE KITS....DO NOT MAIL [facility] ketorolac 0.5 % ophthalmic solution 2021-08 0-05 00:00: 00 Yes INSTILL 1 DROP IN LEFT EYE FOUR TIMES A DAY FOR INFLAMMATI ON FOR EYE KITS....DO NOT MAIL [facility] moxifloxaci n 0.5 % ophthalmic drops 2021-08 0 00:00: 00 Yes INSTILL 1 DROP IN LEFT EYE FOUR TIMES A DAY IN THE OPERATIVE EYE *FOR EYE KIT...DO NOT MAIL [facility] prednisoLON E acetate 1 % ophthalmic suspension drops 2021-08 0 00:00: 00 Yes INSTILL 1 DROP IN LEFT EYE FOUR TIMES A DAY FOR EYE INFLAMMATI ON FOR EYE KITS....DO NOT MAIL [facility] ketorolac 0.5 % ophthalmic solution 2021-08 00:00: 00 Yes INSTILL 1 DROP IN LEFT EYE FOUR TIMES A DAY FOR INFLAMMATI ON FOR EYE KITS....DO NOT MAIL [facility] moxifloxaci n 0.5 % ophthalmic drops 2021-08 00:00: 00 Yes INSTILL 1 DROP IN LEFT EYE FOUR TIMES A DAY IN THE OPERATIVE EYE *FOR EYE KIT...DO NOT MAIL [facility] prednisoLON E acetate 1 % ophthalmic suspension drops 2021-08 00:00: 00 Yes INSTILL 1 DROP IN LEFT EYE FOUR TIMES A DAY FOR EYE INFLAMMATI ON FOR EYE KITS....DO NOT MAIL [facility] metoprolol tartrate 50 mg tablet 03-15 00:00: 00 Yes 25mg 25 mg. [facility] metoprolol tartrate 50 mg tablet 03-15 00:00: 00 Yes 25mg 25 mg. [facility] metoprolol tartrate 50 mg tablet 03-15 00:00: 00 Yes 25mg 25 mg. [facility] metoprolol tartrate 50 mg tablet 03-15 00:00: 00 Yes 25mg 25 mg. [facility] albuterol 90 mcg/actuati on inhaler 02-11 00:00: 00 Yes 2{puff} Inhale 2 Puffs every 6 (six) hours as needed. [facility] finasteride 5 mg tablet 02-11 00:00: 00 Yes 5mg 5 mg. [facility] lisinopriL 20 mg tablet 0 16 00:00: 00 Yes 20mg 20 mg. [facility] SERTraline 100 mg tablet 0 16 00:00: 00 Yes 100mg 100 mg. [facility] simvastatin 20 mg tablet 0 16 00:00: 00 Yes 20mg 20 mg. [facility] tamsulosin 0.4 mg 24 hr capsule 0 16 00:00: 00 Yes .4mg 0.4 mg. [facility] albuterol 90 mcg/actuati on inhaler 0 16 00:00: 00 Yes 2{puff} Inhale 2 Puffs every 6 (six) hours as needed. [facility] finasteride 5 mg tablet 0 16 00:00: 00 Yes 5mg 5 mg. [facility] lisinopriL 20 mg tablet 0 02-11 00:00: 00 Yes 20mg 20 mg. [facility] SERTraline 100 mg tablet 0 16 00:00: 00 Yes 100mg 100 mg. [facility] simvastatin 20 mg tablet 0 02-11 00:00: 00 Yes 20mg 20 mg. [facility] tamsulosin 0.4 mg 24 hr capsule 02-11 00:00: 00 Yes .4mg 0.4 mg. [facility] albuterol 90 mcg/actuati on inhaler 16 00:00: 00 Yes 2{puff} Inhale 2 Puffs every 6 (six) hours as needed. [facility] finasteride 5 mg tablet 0 16 00:00: 00 Yes 5mg 5 mg. [facility] lisinopriL 20 mg tablet 0 16 00:00: 00 Yes 20mg 20 mg. [facility] SERTraline 100 mg tablet 2021-0 -16 00:00: 00 Yes 100mg 100 mg. [facility] simvastatin 20 mg tablet 0 6-16 00:00: 00 Yes 20mg 20 mg. [facility] tamsulosin 0.4 mg 24 hr capsule 02-11 00:00: 00 Yes .4mg 0.4 mg. [facility] albuterol 90 mcg/actuati on inhaler 02-11 00:00: 00 Yes 2{puff} Inhale 2 Puffs every 6 (six) hours as needed. [facility] finasteride 5 mg tablet 02-11 00:00: 00 Yes 5mg 5 mg. [facility] lisinopriL 20 mg tablet 02-11 00:00: 00 Yes 20mg 20 mg. [facility] SERTraline 100 mg tablet 02-11 00:00: 00 Yes 100mg 100 mg. [facility] simvastatin 20 mg tablet 02-11 00:00: 00 Yes 20mg 20 mg. [facility] tamsulosin 0.4 mg 24 hr capsule 02-11 00:00: 00 Yes .4mg 0.4 mg. [facility] Vital Signs Vital Name Observation Time Observation Value Comments [facility] Systolic blood pressure 2022-06-16 18:51:00 131 mm[Hg] [facility] Diastolic blood pressure 2022-06-16 18:51:00 62 mm[Hg] [facility] Heart rate 2022-06-16 18:51:00 59 /min [facility] Respiratory rate 2022-06-16 18:51:00 19 /min [facility] Body height 2022-06-16 18:51:00 172.7 cm [facility] Body weight 2022-06-16 18:51:00 85.957 kg [facility] BMI 2022-06-16 18:51:00 28.81 kg/m2 [facility] Oxygen saturation in Arterial blood by Pulse oximetry 2022-06-16 18:51:00 92 /min [facility] Procedures Procedure Date / Time Performed Performing Clinicia n Source SLEEP STUDY DATA REPORT 2022-07-01 05:01:00 Doctor Unassigned, [place] [facility] Encounters Start Date/Time End Date/Time Encounter Type Admission Type Attending [facility] Care Facility Care Department Encounter ID Source 2022-08-20 20:00:00 2022-08-20 20:00:00 Outpatient R TAM CAREY STRAHIL [facility] [id number] [facility] 2022-07-01 20:00:00 2022-07-02 07:22:23 Outpatient R TAM CAREY STRAINGina [facility] [id number] [facility] 2022-07-01 20:00:00 2022-07-01 22:30:00 Rn Progressive Care Visit 1, [facility] Sleep Lab Bed Tam Carey [facility] [id number] [facility] 2022-07-01 00:00:00 2022-07-01 00:00:00 Orders Only Doctor Unassigned, [place] [facility] [id number] [facility] 2022-06-16 13:40:00 2022-06-16 14:00:00 [facility] [id number] [facility] 2022-06-16 13:40:00 2022-06-16 13:40:00 Outpatient R TAM CAREY STRAINGina [facility] [id number] [facility] 2019-12-03 04:44:00 2019-12-03 04:44:00 Outpatient Raju_P [facility] [id number]
--- NOTE | 2023-09-19 14:07 | RAD REPORT ---
EXAM DESCRIPTION: RAD - Chest Pa And Lat (2 Views) - 09/19/2023 1:50 pm CLINICAL HISTORY: COUGH COMPARISON: Chest Single View dated 04/05/2023 TECHNIQUE: PA and lateral views of the chest were obtained. FINDINGS: The lungs are clear apart from stable minimal right basilar atelectasis. Heart size is nor mal and central vasculature is within normal limits. No pleural effusion or pneumothorax seen. No acu te bony finding noted. IMPRESSION: No acute cardiopulmonary process.
[2023-09-19 14:24] LABS: Absolute Lymphocytes (CBC) 1.3 K/uL (0.7-4.9); Hematocrit 38.9 % (39.6-49.0); Lymphocytes % 18.3 % (15.3-44.8); MPV 6.6 fL (7.6-11.3); Platelets 247 thou/uL (152-406); RBC Red Blood Cell Count 4.32 M/uL (4.33-5.43)
[2023-09-19 14:45] LABS: Albumin 3.9 g/dL (3.4-5.0); Bilirubin Direct 0.1 mg/dL (0-0.2); Bilirubin Indirect, Calculated 0.3 mg/dL (0.2-0.8); Bilirubin Total 0.4 mg/dL (0.2-1.0); Magnesium 2.3 mg/dL (1.6-2.4); Potassium 4.6 mEq/L (3.5-5.1); Troponin High Sensitivity 4.1 pg/mL (<58.9)
--- NOTE | 2023-09-19 15:30 | ER ---
Nurse's Notes [facility] Name: Ramiro Andrade Age: 77 yrs Sex: Male : 1945 Arrival Date: 09/19/2023 Time: 12:44 Bed 12 Private MD: Diagnosis: COPD/ Chronic obstructive pulmonary disease, unspecified Presentation: 09/19 12:51 Chief complaint: Patient states: he has been having chest pain and productive cough x1 kc6 week. [facility]. reports wheezing at night. Coronavirus screen: At this time, the client does not indicate any symptoms associated with coronavirus-19. Ebola Screen: No symptoms or risks identified at this time. Initial Sepsis Screen: Does the patient meet any 2 criteria? No. Patient's initial sepsis screen is negative. Does the patient have a suspected source of infection? No. Patient's initial sepsis screen is negative. Risk Assessment: Do you want to hurt yourself or someone else? Patient reports no desire to harm self or others. Onset of symptoms was September 19, 2023. 12:51 Method Of Arrival: Ambulatory [facility] 12:51 Acuity: SULEMAN 3 kc6 Historical: - Allergies: 12:52 No Known Allergies; kc6 - PMHx: 12:52 Chronic obstructive lung disease; Hypercholesterolemia; Hypertensive disorder; PTSD; kc6 - PSHx: 12:52 None; kc6 - Immunization history:: Client reports receiving the 2nd dose of the Covid vaccine, Flu vaccine status is unknown. - Social history:: Smoking status: Patient denies any tobacco usage or history of. - Family history:: not pertinent. Screenin:33 [facility] ED Fall Risk Assessment (Adult) History of falling in the last 3 months, kc6 including since admission No falls in past 3 months (0 pts) Confusion or Disorientation No (0 pts) Intoxicated or Sedated No (0 pts) Impaired Gait No (0 pts) Mobility Assist Device Used No (0 pt) Altered Elimination No (0 pt) Score/Fall Risk Level 0 - 2 = Low Risk. Abuse screen: Denies threats or abuse. Denies injuries from another. Nutritional screening: No deficits noted. Tuberculosis screening: No symptoms or risk factors identified. Assessment: 15:33 General: Appears in no apparent distress. comfortable, well groomed, well developed, kc6 Behavior is calm, cooperative, appropriate for age. Pain: Complains of pain in chest Pain does not radiate. Neuro: Level of Consciousness is awake, alert, obeys commands, Oriented to person, place, time, situation, Appropriate for age. Cardiovascular: Reports chest pain, Heart tones S1 S2 present Capillary refill < 3 seconds. Respiratory: Airway is patent Trachea midline Respiratory effort is even, unlabored, Respiratory pattern is regular, symmetrical. GI: No signs and/or symptoms were reported involving the gastrointestinal system. : No signs and/or symptoms were reported regarding the genitourinary system. EENT: No signs and/or symptoms were reported regarding the EENT system. Derm: No signs and/or symptoms reported regarding the dermatologic system. Skin is intact, is healthy with good turgor, Skin is pink, warm \T\ dry. Musculoskeletal: No signs and/or symptoms reported regarding the musculoskeletal system. Circulation, motion, and sensation intact. Capillary refill < 3 seconds, Range of motion: intact in all extremities. Vital Signs: 12:51 BP 153 / 57; Pulse 62; Resp 18 S; Temp 97(TE); Pulse Ox 95% on R/A; Weight 90.72 kg kc6 (R); Height 5 ft. 9 in. (R); Pain 0/10; 15:48 BP 150 / 60; Pulse 75; Resp 18 S; Pulse Ox 96% on R/A; kc6 12:51 Body Mass Index 29.53 (90.72 kg, 175.26 cm) kc6 12:51 Pain Scale: Adult kc6 ED Course: 12:45 Patient arrived in ED. rg4 12:46 Rolf Gregory MD is Attending Physician. rt 12:52 Triage completed. kc6 12:52 Arm band placed on. kc6 13:47 Chest Pa And Lat (2 Views) XRAY In Process Unspecified. EDMS 14:20 Inserted saline lock: 20 gauge in left antecubital area, using aseptic technique. Blood iw collected. 15:20 Akua Cesar, LUKAS is Primary Nurse. jl7 15:32 Patient maintains SpO2 saturation greater than 95% on room air. kc6 15:33 Patient has correct armband on for positive identification. Bed in low position. Call kc light in reach. Side rails up X 1. Client placed on continuous cardiac and pulse oximetry monitoring. NIBP monitoring applied. potline monitor on. 15:48 No provider procedures requiring assistance completed. IV discontinued, intact, kc6 bleeding controlled, No redness/swelling at site. Pressure dressing applied. Administered Medications: 15:30 Drug: DuoNeb Nebulize (3:1) (2.5 mg - 0.5 mg) 3 ml Nebulizer once Route: Nebulizer; kc6 15:30 Drug: MethylPrednisoLONE IVP 125 mg IVP once Route: IVP; Site: left antecubital; kc6 Medication: 15:48 VIS not applicable for this client. kc6 Outcome: 15:29 Discharge ordered by MD. rt 15:48 Discharged to home ambulatory, kc6 15:48 Condition: improved 15:48 Discharge instructions given to patient, Instructed on discharge instructions, follow up and referral plans. medication usage, Demonstrated understanding of instructions, follow-up care, medications, Prescriptions given X 2, 15:48 Patient left the ED. kc6 Signatures: Dispatcher [employer] EDMS Rubi Lee, RN Leisa Newell rg4 Akua Cesar RN RN jl7 Harriet Hansen RN RN kc6 Rolf Gregory MD MD rt
--- NOTE | 2023-09-19 15:30 | EDPHYS ---
Physician Documentation [facility] Name: Ramiro Andrade Age: 77 yrs Sex: Male : 1945 Arrival Date: 09/19/2023 Time: 12:44 Bed 12 Private MD: ED Physician Rolf Gregory HPI: 09/19 18:29 This 77 yrs old Male presents to ER via Ambulatory with complaints of Chest Congestion, rt Chest Pain. 18:31 Patient presents to the ED with cough, congestion, shortness of breath for about 1 rt week. Reports pain with cough, denies any chest pain currently. Denies other acute complaint at this time, symptoms are moderate in severity, no other aggravating elevating factors.. Historical: - Allergies: 12:52 No Known Allergies; kc6 - PMHx: 12:52 Chronic obstructive lung disease; Hypercholesterolemia; Hypertensive disorder; PTSD; kc6 - PSHx: 12:52 None; kc6 - Immunization history:: Client reports receiving the 2nd dose of the Covid vaccine, Flu vaccine status is unknown. - Social history:: Smoking status: Patient denies any tobacco usage or history of. - Family history:: not pertinent. ROS: 18:31 Constitutional: Negative for fever, chills, and weight loss, Abdomen/GI: Negative for rt abdominal pain, nausea, vomiting, diarrhea, and constipation, MS/Extremity: Negative for injury and deformity, Skin: Negative for injury, rash, and discoloration, Neuro: Negative for headache, weakness, numbness, tingling, and seizure, Psych: Negative for depression, anxiety, suicide ideation, homicidal ideation, and hallucinations, 18:31 Cardiovascular: Positive for chest pain, Negative for edema, 18:31 Respiratory: Positive for cough, shortness of breath, Exam: 18:31 Constitutional: This is a well developed, well nourished patient who is awake, alert, rt and in no acute distress. Head/Face: Normocephalic, atraumatic. Chest/axilla: Normal chest wall appearance and motion. Nontender with no deformity. No lesions are appreciated. Cardiovascular: Regular rate and rhythm with a normal S1 and S2. No gallops, murmurs, or rubs. Normal PMI, no JVD. No pulse deficits. Abdomen/GI: Soft, non-tender, with normal bowel sounds. No distension or tympany. No guarding or rebound. No evidence of tenderness throughout. MS/ Extremity: Pulses equal, no cyanosis. Neurovascular intact. Full, normal range of motion. Neuro: Awake and alert, GCS 15, oriented to person, place, time, and situation. Cranial nerves II-XII grossly intact. Motor strength 5/5 in all extremities. Sensory grossly intact. Cerebellar exam normal. Normal gait. Psych: Awake, alert, with orientation to person, place and time. Behavior, mood, and affect are within normal limits. 18:31 ECG was reviewed by the Attending Physician. 18:31 Respiratory: Wheezes heard on all lung de souza, no respiratory distress, Vital Signs: 12:51 BP 153 / 57; Pulse 62; Resp 18 S; Temp 97(TE); Pulse Ox 95% on R/A; Weight 90.72 kg kc6 (R); Height 5 ft. 9 in. (R); Pain 0/10; 15:48 BP 150 / 60; Pulse 75; Resp 18 S; Pulse Ox 96% on R/A; kc6 12:51 Body Mass Index 29.53 (90.72 kg, 175.26 cm) kc6 12:51 Pain Scale: Adult kc6 MDM: 12:54 Patient medically screened. rt 18:31 Differential diagnosis: Pneumonia, pneumothorax, congestive heart failure, COPD rt exacerbation. HEART Score: History: Slightly Suspicious (0), ECG: Non specific repolarization disturbance / LBTB / PM (1), Age: > or = 65 years (2), Risk Factors: 1 or 2 risk factors (1), Troponin: < or = 1 x Normal Limit (0), Total Score = 3. Data reviewed: vital signs, nurses notes, lab test result(s), EKG, radiologic studies. Consideration of Admission/Observation Escalation of care including admission/observation considered. Symptoms significantly improving with treatment in the ED, no hypoxia, no pneumonia, negative troponin, given chronicity of symptoms, this is sufficient to rule out acute coronary syndrome, likely to benefit from admission at this time, stable for outpatient care, return precautions were discussed.. Independent interpretation of the following test(s) in the Emergency Department X-Ray: My interpretation is No pneumonia seen on interpretation of x-ray images. Test considered but Not performed: CT: Low suspicion for pulmonary embolism, CT angiogram not indicated. Care significantly affected by the following chronic conditions: Chronic Obstructive Pulmonary Disease. Counseling: I had a detailed discussion with the patient and/or guardian regarding the historical points, exam findings, and any diagnostic results supporting the discharge/admit diagnosis, lab results, radiology results, the need for outpatient follow up, to return to the emergency department if symptoms worsen or persist or if there are any questions or concerns that arise at home. Response to treatment: the patient's symptoms have markedly improved after treatment. 09/19 12:58 Order name: Basic Metabolic Panel; Complete Time: 15:18 rt 09/19 12:58 Order name: CBC with Diff; Complete Time: 15:18 rt 09/19 12:58 Order name: LFT's; Complete Time: 15:18 rt 09/19 12:58 Order name: Magnesium; Complete Time: 15:18 rt 09/19 12:58 Order name: NT PRO-BNP; Complete Time: 15:18 rt 09/19 12:58 Order name: Troponin HS; Complete Time: 15:18 rt 09/19 12:58 Order name: Chest Pa And Lat (2 Views) XRAY; Complete Time: 14:10 rt 09/19 12:58 Order name: EKG; Complete Time: 12:59 rt 09/19 12:58 Order name: Cardiac monitoring; Complete Time: 15:21 rt 09/19 12:58 Order name: EKG - Nurse/Tech; Complete Time: 15:12 rt 09/19 12:58 Order name: IV Saline Lock; Complete Time: 14:20 rt 09/19 12:58 Order name: Labs collected and sent; Complete Time: 14:20 rt 09/19 12:58 Order name: O2 Per Protocol; Complete Time: 14:16 rt 09/19 12:58 Order name: O2 Sat Monitoring; Complete Time: 14:16 rt EC:31 Rate is 58 beats/min. Rhythm is regular, Sinus bradycardia with No ectopy. QRS [place] is rt Normal. [place] interval is normal. QRS interval is normal. QT interval is normal. No Q waves. T waves are Normal. No ST changes noted. Administered Medications: 15:30 Drug: DuoNeb Nebulize (3:1) (2.5 mg - 0.5 mg) 3 ml Nebulizer once Route: Nebulizer; kc6 15:30 Drug: MethylPrednisoLONE IVP 125 mg IVP once Route: IVP; Site: left antecubital; kc6 Disposition Summary: 09/19/23 15:29 Discharge Ordered Notes: Location: Home rt Problem: an acute exacerbation rt Symptoms: have improved rt Condition: Stable rt Diagnosis - COPD/ Chronic obstructive pulmonary disease, unspecified rt Followup: rt - With: Private Physician - When: 2 - 3 days - Reason: Discharge Instructions: - Discharge Summary Sheet rt - Chronic Obstructive Pulmonary Disease rt Forms: - Medication Reconciliation Form rt - Thank You Letter rt - Antibiotic Education rt - Prescription Opioid Use rt - Patient Portal Instructions rt - Leadership Thank You Letter rt Prescriptions: - albuterol sulfate 90 mcg/actuation Inhalation HFA Aerosol Inhaler - inhale 2 inhalation INHALATION route every 4 to 6 hours as needed for shortness rt of breath or wheezing; 2 Each; Refills: 0, Product Selection Permitted - Prednisone 20 mg Oral Tablet - take 2 tablets ORAL route once daily for 5 days; 10 tablet; Refills: 0, Product rt Selection Permitted Signatures: Dispatcher [employer] Harriet Schneider RN RN kc6 Rolf Gregory MD MD rt
[2023-09-19 17:02] VITALS: TEMP 97
[2023-09-19 17:24] VITALS: BP 150/60; O2SAT 96
--- NOTE | 2023-09-20 17:51 | EKG ---
Test Date: 2023-09-19 Test Time: 14:27:21 [place]: ELIZABETH MEASUREMENT RESULTS: Intervals: Rate: 58 ID: [id number] QRSD: 84 QT: 440 QTc: 431 [place]: P: 98 ID: [id number] QRS: 58 T: 56 INTERPRETIVE STATEMENTS: Sinus bradycardia Otherwise normal ECG Compared to ECG 04/05/2023 12:23:02 No significant changes Electronically Signed On 09-20-23 17:50:24 [employer] by Gurwinder Medina
== END ==
LOC: ER 12:44
DX: J44.9 Chronic obstructive pulmonary disease, unspecified (principal)
CPT/HCPCS: 93005; 85025; 80048; 36415; 83735; 80076; 84484; 83880; 71046; 94640; 96374; 99285; J7613; J7644; J2930